=== PATIENT | male | born 1965 | race Caucasian/White ===

== ENCOUNTER → 2018-05-21 | Outpatient (CLI) | payer BC ==
--- NOTE | 2018-05-22 18:48 | ECHOF ---
Referral Reason:CHEST DISCOMFORT MEASUREMENTS -------- HEIGHT: 190.5 cm WEIGHT: 102.1 kg BP: 139/91 RVIDd: 3.4 cm (< 3.3) IVSd: 1.0 cm (0.6 - 1.1) LVIDd: 5.6 cm (3.9 - 5.3) LVPWd: 1.0 cm (0.6 - 1.1) IVSs: 1.5 cm LVIDs: 3.7 cm LVPWs: 1.4 cm LA Diam: 3.4 cm (2.7 - 3.8) LAESV Index (A-L): 23.35 ml/m Ao Diam: 3.2 cm (2.0 - 3.7) AV Cusp: 2.0 cm (1.5 - 2.6) MV EXCURSION: 22.907 mm (> 18.000) MV EF SLOPE: 114 mm/s (70 - 150) EPSS: 1.0 cm MV E Aaron: 0.73 m/s MV DecT: 254 ms MV A Aaron: 0.74 m/s MV E/A Ratio: 0.99 AV maxP.64 mmHg AV meanP.87 mmHg RAP: 5.00 mmHg RVSP: 26.56 mmHg FINDINGS -------- Sinus rhythm. This was a technically good study. The left ventricular size is normal. Left ventricular wall thickness is normal. Overall left vent ricular systolic function is normal with, an EF between 60 - 65 %. The right ventricle is mildly enlarged. Normal LA size by volume 22+/-6 ml/m2. The right atrium is normal in size. The aortic valve is trileaflet and appears structurally normal. There is trace mitral regurgitation. Mild tricuspid regurgitation present. Right ventricular systolic pressure is normal at < 35 mmHg. Trace/mild (physiologic) pulmonic regurgitation. The aortic root size is normal. Normal inferior vena cava with normal inspiratory collapse consistent with estimated right atrial pre ssure of 5 mmHg. There is no pericardial effusion. CONCLUSIONS -------- 1. Sinus rhythm. 2. This was a technically good study. 3. The left ventricular size is normal. 4. Left ventricular wall thickness is normal. 5. Overall left ventricular systolic function is normal with, an EF between 60 - 65 %. 6. The right ventricle is mildly enlarged. 7. Normal LA size by volume 22+/-6 ml/m2. 8. The right atrium is normal in size. 9. The aortic valve is trileaflet and appears structurally normal. 10. There is trace mitral regurgitation. 11. Mild tricuspid regurgitation present. 12. Right ventricular systolic pressure is normal at < 35 mmHg. 13. Trace/mild (physiologic) pulmonic regurgitation. 14. The aortic root size is normal. 15. Normal inferior vena cava with normal inspiratory collapse consistent with estimated right atrial pressure of 5 mmHg. 16. There is no pericardial effusion. APPRAISAL COORDINATOR: Ana Laura Sherwood RDCS
== END | disposition home or self-care (01) ==
LOC: RADECHMAIN 13:02
PROVIDERS: ATTEND Family Medicine
DX: I20.9 Angina pectoris, unspecified (principal)
CPT/HCPCS: 93306

== ENCOUNTER → 2018-06-01 | Outpatient (CLI) | payer BC ==
--- NOTE | 2018-06-01 10:19 | P.STRESS ---
- Stress Test Note Stress Test Results/Findings: Exam Performed: stress test Exam Date: 06/01/18 Reason for Exam: Chest Pain Height: 6 ft 3 in Weight: 102.058 kg Protocol: Rashad Stage: 3 Duration of Exercise: 9:00 Resting Heart Rate: 80 Resting Blood Pressure: 137/90 Maximum Achieved Heart Rate: 167 Maximum Achieved Blood Pressure: 171/103 85% PMHR: 141 100% PMHR: 166 METS: 100 Technologist Comment: Stress Test Results/Findings: This is a 52-year-old gentleman with history of hypertension, family history of ischemic heart disease and also smoking being evaluated for Cardec status. Stress data: Baseline EKG showed sinus rhythm with normal [place] interval, QRS duration. Blood pressure at rest is 137/90 with pulse rate of 80. Patient walked on the Rashad protocol for 9 minutes achieving a maximal heart rate of 167 with blood pressure of about 1 7100. EKGs taken during and after the exercise did not reveal any significant changes from baseline. Patient did not express any chest pain. Final impression #1. Negative stress test #2 patient did not express any chest pain. #3. No arrhythmias detected #4. Patient's exercise capacity is average
--- NOTE | 2018-06-02 13:12 | EST ---
Stress Test Results/Findings: Exam Performed: stress test Exam Date: 06/01/18 Reason for Exam: Chest Pain Height: 6 ft 3 in Weight: 102.058 kg Protocol: Rashad Stage: 3 Duration of Exercise: 9:00 Resting Heart Rate: 80 Resting Blood Pressure: 137/90 Maximum Achieved Heart Rate: 167 Maximum Achieved Blood Pressure: 171/103 85% PMHR: 141 100% PMHR: 166 METS: 100 Technologist Comment: Stress Test Results/Findings: This is a 52-year-old gentleman with history of hypertension, family history of ischemic heart disease and also smoking being evaluated for Cardec status. Stress data: Baseline EKG showed sinus rhythm with normal [place] interval, QRS duration. Blood pressure at rest is 137/90 with pulse rate of 80. Patient walked on the Rashad protocol for 9 minutes achieving a maximal heart rate of 167 with blood pressure of about 1 7100. EKGs taken during and after the exercise did not reveal any significant changes from baseline. Patient did not express any chest pain. Final impression #1. Negative stress test #2 patient did not express any chest pain. #3. No arrhythmias detected #4. Patient's exercise capacity is average MTDD
== END | disposition home or self-care (01) ==
LOC: RADNMMAIN 08:32
PROVIDERS: ATTEND Family Medicine
DX: I20.9 Angina pectoris, unspecified (principal)
CPT/HCPCS: 93017

== ENCOUNTER 2018-10-08 07:43 | Day surgery (SDC) | payer BC ==
[2018-10-06 09:59] VITALS: BMI 27.7
[~2018-10-08 07:43] MED LIST: LACTATED RINGERS 1,000 ML IV SCH; LIDOCAINE 1% 20 ML VIAL (10MG/ML) FOR IV START INTRADERMA PRN
[2018-10-08 08:25] VITALS: TEMP 97.5
[2018-10-08] MEDS ORDERED: LIDOCAINE 1% INJ 10MG/ML (20 ML MDV) ONE (08:39)
[2018-10-08] MEDS ORDERED: PROPOFOL 10 MG/ML 20 ML VIAL IV ONE (08:39)
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
--- NOTE | 2018-10-08 09:01 | P.OP ---
Date of Procedure: 10/08/18 Preoperative Diagnosis: Screening colonoscopy Postoperative Diagnosis: Mild diverticulosis Procedure(s) Performed: Colonoscopy Anesthesia: MAC Surgeon: Aron Esquivel Pathology: none sent Condition: stable Disposition: PACU Description of Procedure: The patient's placed on the endoscopy table in the lateral position. He received IV sedation. Digital rectal exam was performed which revealed no abnormalities. The flexible colonoscope was then placed patient anus passed throughout the entire colon. The ileocecal valve was visualized. The cecum, ascending and transverse colon appeared normal. In the descending; was a few scattered diverticula. There were no polyps seen. The scope was then brought back and the rectum and this appeared normal. The scope was withdrawn for patient.
[2018-10-08 09:02] VITALS: RESP 16
[2018-10-08 09:13] VITALS: BP 127/83; PULSE 67
== END 2018-10-08 09:29 | disposition home or self-care (01) ==
LOC: ORWHC2ENDO 07:43
PROVIDERS: ATTEND Surgery
DX: Z12.11 Encounter for screening for malignant neoplasm of colon (principal); K57.90 Diverticulosis of intestine, part unspecified, without perforation or abscess without bleeding; I10 Essential (primary) hypertension; Z87.891 Personal history of nicotine dependence; Z79.899 Other long term (current) drug therapy; Z91.048 Other nonmedicinal substance allergy status
CPT/HCPCS: J2001; J2704; G0121